=== PATIENT | male | born 1940 | race Hispanic/Latino ===

== ENCOUNTER 2024-09-24 06:45 | Emergency (ER) | payer MEDICARE ==
[~2024-09-24] VITALS: Ht 167.6 cm; Wt 74.8 kg
[2024-09-24 07:00] VITALS: TEMP 97.6
[2024-09-24 07:25] VITALS: PULSE 74; RESP 16; O2SAT 99
== END 2024-09-24 07:55 | disposition home or self-care (01) ==
LOC: ER 06:51
DX: R31.9 Hematuria, unspecified (principal); E78.5 Hyperlipidemia, unspecified
CPT/HCPCS: 87086; 99283